=== PATIENT | female | born 1985 | race American Indian/Alaskan Native ===

== ENCOUNTER 2018-02-20 18:29 | Emergency (ER) | payer MEDICAID ==
[2018-02-20 19:41] VITALS: BMI 42.0
[2018-02-20] MEDS ORDERED: Sodium Chloride 0.9% 1,000 ML IV STA (20:05)
--- NOTE | 2018-02-20 20:13 | ED PDOC ---
Arrival/HPI - General Historian: Patient - History of Present Illness Time/Duration: Other (see hpi) Context: Home <Madelaine Lopez - Last Filed: 02/20/18 22:07> <Chidi Rice - Last Filed: 02/20/18 22:39> - General Chief Complaint: Abnormal Labs Time Seen by Provider: 02/20/18 18:42 - History of Present Illness Narrative History of Present Illness (Text): 02/20/18 20:05 This 32 yo female with pmh fibroid, anemia, presents to this ED c/o feeling light headedness, and heavy menstruation x 3 days. Patient stated she saw her PMD yesterday who order blood test. Patient saw her PMD today who told patient to go to ED for blood transfusion. (Madelaine Lopez) Past Medical History - Provider Review Nursing Documentation Reviewed: Yes - Past History Past History: Non-Contributing - Past Medical History Past Medical History: No Previous - Cardiac Hx Cardiac Disorders: No Hx Hypertension: No Hx Pacemaker: No - Pulmonary Hx Respiratory Disorders: No Hx Asthma: No Hx Chronic Obstructive Pulmonary Disease (COPD): No Hx Emphysema: No - Neurological Hx Neurological Disorder: No HX Cerebrovascular Accident: No Hx Dementia: No Hx Seizures: No - HEENT Hx HEENT Disorder: No - Renal Hx Renal Disorder: No - Endocrine/Metabolic Hx Endocrine Disorders: No - Hematological/Oncological Hx Blood Disorders: Yes Hx Anemia: Yes Hx Blood Transfusions: Yes Hx Blood Transfusion Reaction: No Hx Cancer: No - Musculoskeletal/Rheumatological Hx Musculoskeletal Disorders: No - Gastrointestinal Hx Gastrointestinal Disorders: No - Genitourinary/Gynecological Hx Genitourinary Disorders: Yes Other/Comment: Fibroids - Psychiatric Hx Psychophysiologic Disorder: No Hx Depression: No Hx Emotional Abuse: No Hx Physical Abuse: No Hx Substance Use: Yes (marijuana) - Past Surgical History Past Surgical History: No Previous - Surgical History Hx Gastric Bypass Surgery: No - Suicidal Assessment Feels Threatened In Home Enviroment: No <Madelaine Lopez - Last Filed: 02/20/18 22:07> Family/Social History - Physician Review Nursing Documentation Reviewed: Yes Family/Social History: Other (noncontributory) Smoking Status: Current Some Days Smoker Hx Alcohol Use: Yes (SOCIALLY) Hx Substance Use: Yes (marijuana) Hx Substance Use Treatment: No <Madelaine Lopez - Last Filed: 02/20/18 22:07> Allergies/Home Meds <Madelaine Lopez - Last Filed: 02/20/18 22:07> <Chidi Rice - Last Filed: 02/20/18 22:39> Allergies/Adverse Reactions: Allergies No Known Allergies Allergy (Verified 02/20/18 19:41) Home Medications: Home Meds Medication Instructions Recorded Confirmed Ferrous Sulfate [Feosol] 325 mg PO TID 02/20/18 02/20/18 Review of Systems - Review of Systems Constitutional: Normal. absent: Fatigue, Weight Change, Fevers, Night Sweats Eyes: Normal ENT: Normal Respiratory: Normal. absent: SOB, Cough Cardiovascular: Normal. absent: Chest Pain, Palpitations Gastrointestinal: Normal. absent: Abdominal Pain, Nausea, Vomiting Genitourinary Female: Vaginal Bleeding. absent: Dysuria, Frequency, Hematuria, Vaginal Discharge Musculoskeletal: Normal Skin: Normal Neurological: Dizziness. absent: Headache, Focal Weakness, Gait Changes, Speech Changes, Facial Droop, Disequilibrium, Seizure Endocrine: Normal Hemo/Lymphatic: Normal Psychiatric: Normal <Madelaine Lopez - Last Filed: 02/20/18 22:07> Physical Exam Temperature: Afebrile Blood Pressure: Normal Pulse: Regular Respiratory Rate: Normal Appearance: Positive for: Well-Appearing, Non-Toxic, Comfortable Pain Distress: None Mental Status: Positive for: Alert and Oriented X 3 - Systems Exam Head: Present: Atraumatic, Normocephalic Pupils: Present: PERRL Extroacular Muscles: Present: EOMI Conjunctiva: Present: Normal Mouth: Present: Moist Mucous Membranes Neck: Present: Normal Range of Motion Respiratory/Chest: Present: Clear to Auscultation, Good Air Exchange. No: Respiratory Distress, Accessory Muscle Use Cardiovascular: Present: Regular Rate and Rhythm, Normal S1, S2. No: Murmurs Abdomen: No: Tenderness, Distention, Peritoneal Signs Back: Present: Normal Inspection Upper Extremity: Present: Normal Inspection, Normal ROM. No: Cyanosis, Edema Lower Extremity: Present: Normal Inspection, Normal ROM. No: Edema Neurological: Present: GCS=15, CN II-XII Intact, Speech Normal, Motor Func Grossly Intact, Normal Sensory Function, Normal Cerebellar Funct, Gait Normal, Memory Normal Skin: Present: Warm, Dry, Normal Color. No: Rashes Psychiatric: Present: Alert, Oriented x 3, Normal Insight, Normal Concentration <Madelaine Lopez - Last Filed: 02/20/18 22:07> Vital Signs Temp Pulse Resp BP Pulse Ox 02/20/18 20:08 129/64 02/20/18 19:37 98.7 F 78 18 100 Medical Decision Making <Madelaine Lopez - Last Filed: 02/20/18 22:07> <Chidi Rice - Last Filed: 02/20/18 22:39> ED Course and Treatment: 02/20/18 21:38 Patient is refusing to be admitted, despite Hg is 4.0. She said " just give me the blood so I can go home" I told patient her Hg is very low, and she needs to be admitted. 02/20/18 22:07 Patient stated her grandfather , and she needs to leave ED. She is refusing to have blood transfusion because she needs to leave "right now". I told patient that I highly recommend to get blood transfusion since It is very risky to ambulate with a HG of 4. I told her she could faint and hit her head. This could make her get ICH, IL, SOB, and other complication. She said she is aware of sever risk, her [id number] is a doctor, and she will call her for further medical question. She said once is over , she is going to [facility] 02/20/18 22:18 Leaving Against Medical Advice (AMA): This patient is choosing to leave against medical advice. The EP has personally explained to the pt that choosing to do so may result in permanent bodily harm or . The EP discussed at great length that without further evaluation and monitoring there may be unforeseen circumstances and/or deterioration causing permanent bodily harm or as a result of their choice. The pt verbalized these risks back to the physician in laymans terms. The pt is alert, oriented, and shows the mental capacity to make clear decisions regarding the pts health care at this time. The pt continues to wish to leave against medical advice. In light of the pts decision to leave AMA, follow-up has been recommended and the pt is aware of the importance of following up as instructed. The pt has been advised that they should return to the ED immediately if they change their mind at any time, or if thier condition begins to change or worsen in any way. (Madelaine Lopez) - Lab Interpretations Lab Results: 02/20/18 20:12 02/20/18 20:12 Lab Results 02/20/18 21:05: Blood Type Confirm O POSITIVE 02/20/18 20:31: Blood Type O POSITIVE, Antibody Screen Negative, Crossmatch See Detail, BBK History Checked No verified bt 02/20/18 20:12: Sodium 142, Potassium 4.0, Chloride 109 H, Carbon Dioxide 22, Anion Gap 16, BUN 9, Creatinine 0.8, Est GFR ( Amer) > 60, Est GFR (Non- Af Amer) > 60, Random Glucose 97, Calcium 8.5, Total Bilirubin 0.2, AST 30, ALT 32, Alkaline Phosphatase 32 L, Total Protein 7.5, Albumin 3.9, Globulin 3.6, Albumin/Globulin Ratio 1.1 02/20/18 20:12: PT 14.3 H, INR 1.25 H, APTT 27.6 02/20/18 20:12: WBC 6.9, RBC 1.80 L, Hgb 4.0 L*, Hct 14.0 L*, MCV 77.8 L, MCH 22.2 L, MCHC 28.6 L, RDW 20.7 H, Plt Count 565 H, MPV 9.5, Gran % 76.4 H, Lymph % (Auto) 16.4 L, Harvey % (Auto) 5.9, Eos % (Auto) 1.0 L, Baso % (Auto) 0.3, Gran # 5.30, Lymph # (Auto) 1.1 L, Harvey # (Auto) 0.4, Eos # (Auto) 0.1, Baso # (Auto ) 0.02 - Medication Orders Current Medication Orders: Discontinued Medications Sodium Chloride (Sodium Chloride 0.9%) 1,000 mls @ 999 mls/hr IV .Q1H1M STA Stop: 02/20/18 21:05 Last Admin: 02/20/18 20:11 Dose: 999 mls/hr eMAR Start Stop Document 02/20/18 20:11 IT (Rec: 02/20/18 20:11 IT [id number]) Intravenous Solution Start Date 02/20/18 Start Time 20:11 - PA / [employer] / Resident Statement /DO has reviewed & agrees with the documentation as recorded. <Chidi Rice - Last Filed: 02/20/18 22:39> Disposition/Present on Arrival - Present on Arrival Any Indicators Present on Arrival: No History of DVT/PE: No History of Uncontrolled Diabetes: No Urinary Catheter: No History of Decub. Ulcer: No History Surgical Site Infection Following: None - Disposition Have Diagnosis and Disposition been Completed?: Yes Disposition Time: 22:19 <Madelaine Lopez - Last Filed: 02/20/18 22:07> <Chidi Rice - Last Filed: 02/20/18 22:39> - Disposition Diagnosis: Severe anemia, Hemoglobin decreased, Vaginal bleeding, abnormal Disposition: AGAINST MEDICAL ADVICE Condition: UNKNOWN Referrals: Bimal Ramos MD [Primary Care Provider] - Follow up with primary Forms: [employer] (French)
[2018-02-20 20:18] LABS: BASO # 0.02 K/mm3 (0.0-2.0); BASO % 0.3 % (0.0-3.0); EOS # 0.1 (0.0-0.7); GRAN # 5.3 (1.4-6.5); GRAN % 76.4 % (50.0-68.0); LYMPH # 1.1 (1.2-3.4); LYMPH % 16.4 % (22.0-35.0); MEAN CELL VOLUME 77.8 fl (80.0-105.0); MEAN CORPUSCULAR HEMOGLOBIN 22.2 pg (25.0-35.0); MEAN CORPUSCULAR HGB CONC 28.6 g/dl (31.0-37.0); MEAN PLATELET VOLUME 9.5 fl (7.0-11.0); MONO # 0.4 (0.1-0.6); MONO % 5.9 % (1.0-6.0); RBC 1.8 10^6/uL (3.5-6.1); RED CELL DISTRIBUTION WIDTH 20.7 % (11.5-14.5); WHITE BLOOD COUNT 6.9 10^3/ul (4.5-11.0)
[2018-02-20 20:28] LABS: ALB/GLOB RATIO 1.1 (1.1-1.8); ALBUMIN 3.9 g/dL (3.0-4.8); ALT/SGPT 32 U/L (7-56); AST/SGOT 30 U/L (14-36); BLOOD UREA NITROGEN 9 mg/dL (7-21); CALCIUM 8.5 mg/dL (8.4-10.5); GFR AFRICAN-AMERICAN > 60; GFR NON-AFRICAN AMERICAN > 60; INR 1.25 (0.93-1.08); PARTIAL THROMBOPLASTIN TIME 27.6 Seconds (25.1-36.5); PROTHROMBIN TIME 14.3 SECONDS (9.4-12.5)
[2018-02-21 05:44] VITALS: BP 128/72; PULSE 72; RESP 17; TEMP 98.2; O2SAT 98
== END 2018-02-20 22:09 | disposition left against medical advice (07) ==
LOC: ED 18:29
DX: D64.9 Anemia, unspecified (principal); N93.9 Abnormal uterine and vaginal bleeding, unspecified
CPT/HCPCS: 80053; 85025; 85610; 85730; 86850; 86900; 86920; 99284; J7030